=== PATIENT | female | born 1950 | race African-American/Black ===

== ENCOUNTER 2024-10-20 09:50 | Day surgery (SDC) | payer MEDICARE ==
[2024-10-14 10:13] LABS: BASOPHILS % 0.3 % (0.0-1.0); EOSINOPHILS % 4.8 % (0.0-6.0); LYMPHOCYTES % 28.9 % (18.0-39.1); MONOCYTES % 9.9 % (4.4-11.3); NEUTROPHILS % 55.8 % (38.7-80.0); RED CELL DISTRIBUTION WIDTH 14.6 % (11.7-14.4)
[2024-10-14 10:29] LABS: INR 0.96
[2024-10-14 10:37] LABS: EST GLOMERULAR FILTRATION RATE 41.0 ML/MIN (>=60)
[2024-10-20] VITALS (10 sets, daily range): BP systolic 128–160; BP diastolic 60–80; PULSE 74–85; RESP 13–25; TEMP 96.7–97.5; O2SAT 97–100
[~2024-10-20] VITALS: Ht 162.6 cm; Wt 93.0 kg
[~2024-10-20 09:50] MED LIST: ASPIRIN EC81 MG PO; CILOSTAZOL50 MG PO; GLIPIZIDE5 MG PO; HYDROXYZINE HCL10 MG PO; HYGROTON25 MG PO; LISINOPRIL2.5 MG PO; METFORMIN HCL500 M2 PO; METOPROLOL SUCC50 MG PO; NEURONTIN300 MG PO; PLAVIX75 MG PO; ROSUVASTATIN CA20 MG; TRESIBA100 UNIT/1; VENTOLIN HFA18 GM INH
[2024-10-20] MEDS ORDERED: HEPARIN SOD (PORCINE) 1000 UNIT/ML 30ML ONE (12:08)
[2024-10-20] MEDS ORDERED: LIDOCAINE HCL 2% LOCAL 20 ML VIAL ONE (12:08)
[2024-10-20] MEDS ORDERED: VERAPAMIL HCL 2.5 MG/ML 2 ML VIAL ONE (12:08)
[2024-10-20] MEDS ORDERED: HEPARIN SOD/SOD CHLORIDE 2,000 ML ONE (12:08)
[2024-10-20] MEDS ORDERED: NITROGLYCERIN/D5W 200 MCG/ML 250 ML ONE (12:09)
[2024-10-20] MEDS ORDERED: IOPAMIDOL 370 MG/ML 100 ML INFUS..BTL INJ ONE (12:09)
[2024-10-20] MEDS ORDERED: SODIUM CHLORIDE 0.9% 1000ML 1,000 ML ONE (12:09)
[2024-10-20] MEDS ORDERED: MIDAZOLAM HCL 2 MG/2 ML VIAL ONE (12:28)
[2024-10-20] MEDS ORDERED: FENTANYL CITRATE/PF 100MCG/2 ML INJ ONE (12:28)
== END 2024-10-20 15:50 | disposition home or self-care (01) ==
LOC: CATH LAB 09:50
PROVIDERS: ATTEND Internal Medicine Cardiovascular Disease
DX: T82.855A Stenosis of coronary artery stent, initial encounter (principal); I25.119 Atherosclerotic heart disease of native coronary artery with unspecified angina pectoris; I10 Essential (primary) hypertension; E78.00 Pure hypercholesterolemia, unspecified; E11.9 Type 2 diabetes mellitus without complications; I25.2 Old myocardial infarction; Z68.35 Body mass index [BMI] 35.0-35.9, adult; Z95.810 Presence of automatic (implantable) cardiac defibrillator; Z79.4 Long term (current) use of insulin; Z79.02 Long term (current) use of antithrombotics/antiplatelets; Z79.84 Long term (current) use of oral hypoglycemic drugs; Z79.82 Long term (current) use of aspirin; Z79.899 Other long term (current) drug therapy
CPT/HCPCS: 36415 ×2; 75605; 76937; 80053; 82948; 85025; 85610; 93459; C1760; C1769; C1894; J1644; J2003; J2250; J3010; J7030; Q9967; 99152; 99153